=== PATIENT | male | born 1995 | race Two or more races ===

== ENCOUNTER 2023-01-13 03:55 | Emergency (ER) | payer SELFPAY ==
[~2023-01-13] VITALS: Ht 177.8 cm; Wt 95.0 kg
[2023-01-13 04:55] VITALS: BP 138/83
== END 2023-01-13 05:00 ==
LOC: ER 03:55
DX: S00.81XA Abrasion of other part of head, initial encounter (principal); F17.210 Nicotine dependence, cigarettes, uncomplicated; V43.52XA Car driver injured in collision with other type car in traffic accident, initial encounter; Y93.89 Activity, other specified; Y92.488 Other paved roadways as the place of occurrence of the external cause; Y99.8 Other external cause status